=== PATIENT | male | born 1990 | race Caucasian/White ===

== ENCOUNTER 2024-08-27 18:26 | Emergency (ER) | payer OTHER, SELFPAY ==
[2024-08-27 18:30] VITALS: BP 116/62
--- NOTE | 2024-08-27 20:15 | ED.GENMED ---
History of Present Illness
General
Chief Complaint: Skin Surface Trauma
Time Seen by Provider: 08/27/24 19:52
History of Present Illness
History of Present Illness:
TIME OF INITIAL ENCOUNTER: 8:15 PM
HPI: The patient had a piece of glass break and cut his left hand. He is certain that there is no glass in the affected area. He has no other concerns. There is no dysfunction at the fingers/left hand. He states that his tetanus status is
up-to-date
EXAM:
GENERAL: Well appearing in no distress
HEENT: Moist oral mucosa
NEUROLOGIC: Excellent strength all extremities, no obvious coordination deficits
PSYCHIATRIC: Appropriate mental status, normal insight and judgement
EXTREMITIES: Nontender, no edema, moves all extremities equally
SKIN: There is a 2 cm slightly irregular laceration to the dorsal aspect of the left hand over the radial aspect
NUMBER AND COMPLEXITY OF PROBLEMS ADDRESSED AT THE ENCOUNTER
� Chronic conditions affecting care: Bipolar, OCD
� Acute Exacerbation and/or Progression of Chronic Illness: This is an acute problem
� Differential Diagnosis includes: Hand laceration, no evidence for tendon involvement, no evidence of glass foreign body on exam
AMOUNT AND/OR COMPLEXITY OF DATA TO BE REVIEWED AND ANALYZED
� I performed an independent evaluation of and my interpretation is:
EKG:
CT:
X-rays:
Laboratory Studies:
Other:
� Review of other/old records: The patient was seen here with bipolar related issues in 2022
� Clinical information was obtained by an independent historian: None needed
� Prescriptions/Medications Considered but not given:
� Further testing considered but not performed:
RISK OF COMPLICATIONS AND/OR MORBIDITY OR MORTALITY OF PATIENT MANAGEMENT
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
� Discussion with other providers:
� Escalation of care including admission/observation vs risk of discharge considered: The wound was cleaned, no evidence of foreign body, irrigated, and sutured. Tetanus up-to-date.
ANY OTHER UPDATES:
Past History
Past History
ED Past Medical History: Psychiatric and Other (Bipolar)
ED Past Surgical History: None
Social History
Tobacco: Smoker
Alcohol: None
Drug: Marijuana
Personal: Single
Living: with family
Phy Exam
Physical Exam
Physical Exam:
See HPI
Course
Vital Signs
Initial and Last Documented VS:
Initial Vital Signs
Temp Pulse Resp BP Pulse Ox
36.6 C 67 16 116/62 98
08/27/24 18:30 08/27/24 18:30 08/27/24 18:30 08/27/24 18:30 08/27/24 18:30
Last Documented Vital Signs
Temp Pulse Resp BP Pulse Ox
36.6 C 67 16 116/62 98
08/27/24 18:30 08/27/24 18:30 08/27/24 18:30 08/27/24 18:30 08/27/24 18:30
Procedures
Laceration Closure
Left Dorsal Hand:
Status of Wound: clean
Description of Wound Edges: sharp and other (Sharp but slightly irregular)
Preparation: cleaned with SurClens
Anesthesia: 1% Lidocaine
Revision/Debridement: routine- no revision
Wound exploration: explored to base- no FB
Type of Closure: single layer closure
Skin Closure Material: 4-0 nylon
Number of sutures: 3
*Critical Care Note
Total Time (30-74mins, 75-104mins- exclusive of procedures): Not Applicable
ED Attending Note
-
Portions of this chart may have been created with voice recognition software.� Occasional wrong word or��sound alike� substitutions may have occurred due to the inherent limitations of voice recognition software.
Discharge Plan
Departure
Patient Disposition: Home (Routine Discharge)
Date of Disposition: 08/27/24
Time of Disposition: 20:29
Patient with high blood pressure during this ER visit?: Yes
Discharge Problem:
Hand laceration
Instructions: Laceration Repair With Josie (DC)
Prescriptions:
No Action
lithium carbonate 600 MG capsule
600 mg PO DAILY
risperidone 0.5 MG tablet
0.5 mg PO HS
Referrals:
Yassine Barbosa MD [Family Provider] -
Activity Restrictions/Additional Instructions:
Have the stitches removed by your doctor in approximately 7 days. Return here if worse or other concerns.
Interventions
Interventions:
*Risk Screen - Suicide Last Done: 08/27/24 19:12
*General Assessment Last Done: 08/27/24 19:12
*Neglect/Abuse Screening Last Done: 08/27/24 19:12
*ED COVID-19 Vaccine History Last Done: 08/27/24 19:12
ED-Skin Assessment Last Done: 08/27/24 19:12
Discharge Date and Time
Print Language: ARMENIAN
== END 2024-08-27 20:58 | disposition home or self-care (01) ==
LOC: EMR 18:26
PROVIDERS: EMERGENCY PHYSICIAN Emergency Medicine; FAMILY PHYSICIAN Family Medicine
DX: S61.412A Laceration without foreign body of left hand, initial encounter (principal); W25.XXXA Contact with sharp glass, initial encounter; F17.200 Nicotine dependence, unspecified, uncomplicated
CPT/HCPCS: 12001; 99282

== ENCOUNTER 2025-03-17 08:15 | Emergency (ER) | payer OTHER, SELFPAY ==
[2025-03-17 08:39] VITALS: BMI 24.2
--- NOTE | 2025-03-17 08:52 | ED.GENMED ---
History of Present Illness
General
Chief Complaint: Crisis Evaluation
Source: patient
Time Seen by Provider: 03/17/25 08:27
History of Present Illness
History of Present Illness:
Note:
CHIEF COMPLAINT(S)
Seeking voluntary admission for mental health support.
HISTORY OF PRESENT ILLNESS
The patient is a 34-year-old male with a history of substance use and drug-induced psychosis, presenting with a request for voluntary admission ('201') to a mental health facility. He reports that ongoing familial stressors, specifically his mothers
divorce and associated conflicts, are affecting his current living situation and mental well-being. The patient lives in his mothers basement and has a desire to isolate himself from the current family environment. He wishes to engage in a
structured setting to watch television, engage in drawing, and be around others, noting a lack of social support as his friends are currently unavailable.
The patient describes a history of crystal methamphetamine use for four years, resulting in a legal issue involving breaking into his fathers house and subsequent incarceration for four months. Post-incarceration, he successfully completed a mental
health court program, which facilitated his recovery. The patient has maintained sobriety for almost three years, currently utilizing medical marijuana, and reports regular cigarette smoking. Recent insomnia has been noted, linked to early
awakenings due to family disturbances, resulting in reduced sleep duration.
He expresses no current use of illicit drugs aside from prescribed medical marijuana, no auditory hallucinations, and no suicidal ideations. He has experienced occasional throat discomfort, possibly linked to vocal strain. The patient was previously
diagnosed with drug-induced psychosis but reports no ongoing symptoms and has had positive reinforcement from his past mental health provider on his recovery achievements.
PAST MEDICAL HISTORY
- Drug-induced psychosis resolved post-treatment
- Previous crystal methamphetamine use
ADDITIONAL HISTORY OBTAINED FROM SOURCES OTHER THAN THE PATIENT
No additional external sources contributed to the history.
ALLERGIES
The patient reports no known allergies.
SOCIAL HISTORY
The patient uses medical marijuana and is a cigarette smoker. 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
REVIEW OF SYSTEMS
- Psychiatric: Seeking voluntary mental health support, history of drug-induced psychosis, no current hallucinations or suicidal ideation.
- Respiratory: Scratchy throat with potential vocal strain.
- General: Reports insomnia related to current familial stress.
PHYSICAL EXAM
General: Alert, no acute distress.
Skin: Warm, dry.
Head: Normocephalic, atraumatic.
Neck: Supple, trachea midline.
Eyes, Ears, Nose, Mouth, and Throat: Oral mucosa moist.
Cardiovascular: Normal peripheral perfusion, no edema.
Respiratory: Respirations are non-labored.
Gastrointestinal: Abdomen nondistended.
Back: Normal range of motion, normal alignment.
Musculoskeletal: Normal range of motion, normal strength.
Neurological: Alert and oriented to person, place, time, and situation, no focal neurological deficit observed.
Psychiatric: Cooperative, appropriate mood & affect.
PLAN
The plan includes evaluating the patient for voluntary admission ('201') to a mental health facility, arranging a meeting with a picking table worker, and considering cessation of marijuana use during the admission period.
DIFFERENTIAL DIAGNOSIS
The Differential Diagnosis includes, in no particular order and is not limited to:
1. Adjustment disorder
2. Substance use disorder
3. Mood disorder, not otherwise specified
4. Anxiety disorder
5. Insomnia related to stress
6. Vocal strain or laryngitis
7. Familial conflict
8. History of drug-induced psychosis (resolved)
9. Depression
10. Sleep disorder
CARE-UPDATE
03/17/25 - 11:03
Patient reassessed and exhibiting manic behavior, frequently moving lips as if speaking to an unseen interlocutor without verbalizing. Displays episodes of agitation.
Disposition:
SUMMARY OF ENCOUNTER
The patient, a 34-year-old male, presented to the emergency department seeking voluntary admission to an inpatient mental health facility. He reports familial interpersonal difficulties and symptoms consistent with bipolar disorder but denies any
current suicidal ideation. The patient admits to not taking any prescribed medications for his condition. A urine drug screen was ordered to assess substance use, as part of the evaluation process.
DISPOSITION
Admit.
ASSESSMENT
The patient is experiencing exacerbate symptoms related to bipolar disorder, influenced by familial stress and non-compliance with prescribed medication regimen.
PLAN
Initiate voluntary admission for inpatient mental health care. Evaluate the necessity for medication management of bipolar disorder and further assess any potential substance use pending urine drug screening results.
MEDICAL DECISION MAKING
- Number and Complexity of Problems Addressed: Chronic conditions affecting care including substance use disorder, bipolar disorder, and familial conflict.
- Data:
- Category 1: The urine drug screen was ordered to determine possible substance use.
- Category 2: No additional external information was required as the patient provided the history.
- Category 3: Management discussed with picking table worker for patient placement into an appropriate inpatient setting.
- Risk: Prescription medication management considered but pending due to lack of current medication adherence and need for inpatient monitoring. Social determinants of health significantly impact care due to familial conflict.
DIAGNOSIS
- Bipolar disorder (ICD-10: F31.9)
- Adjustment disorder (ICD-10: F43.20)
- Substance use disorder, unspecified (ICD-10: F19.10) pending confirmation from urine drug screen results.
Past History
Past History
ED Past Medical History: Psychiatric and Other (Bipolar)
ED Past Surgical History: None
Social History
Tobacco: Smoker
Alcohol: None
Drug: Marijuana
Personal: Single
Living: with family
Phy Exam
Physical Exam
Physical Exam:
.
Course
Orders/Labs/Results
Orders:
Orders
03/17/25 08:51
Crisis Consult Urgent
Reason for Consult: possible placement
03/17/25 10:34
Drug Screen, Urine [Urine Drug Abuse Screen] Urgent
Date Specimen was Collected: 03/17/25
Time Specimen was Collected: 08:56
Abnormal Lab Results
03/17/25
10:34
U Marijuana (THC) Screen Positive H
(Negative)
Vital Signs
Initial and Last Documented VS:
Initial Vital Signs
Temp Pulse Resp Pulse Ox
98.2 F 61 18 95
03/17/25 08:18 03/17/25 08:18 03/17/25 08:18 03/17/25 08:18
Last Documented Vital Signs
Temp Pulse Resp BP Pulse Ox
98.2 F 82 20 131/85 99
03/17/25 08:18 03/17/25 11:15 03/17/25 11:15 03/17/25 11:15 03/17/25 11:15
*Pulse Oximetry
SaO2: 95
Oxygen Mode of Delivery: Room air
Patient hypoxic: no
*Critical Care Note
Total Time (30-74mins, 75-104mins- exclusive of procedures): Not Applicable
Update Note
Update Note:
Patient presented for voluntary commitment. Only complaint was that he wanted a break from his mom and to get something to eat. Was not suicidal. Does clearly have some giulia but is not psychotic. Patient eloped while waiting place
ED Attending Note
-
Portions of this chart may have been created with voice recognition software.� Occasional wrong word or��sound alike� substitutions may have occurred due to the inherent limitations of voice recognition software.
Discharge Plan
Departure
Patient Disposition: Elopement
Date of Disposition: 03/17/25
Time of Disposition: 08:53
Discharge Problem:
Bipolar disorder with severe giulia
Prescriptions:
No Action
lithium carbonate 600 MG capsule
600 mg PO DAILY
risperidone 0.5 MG tablet
0.5 mg PO HS
Interventions
Interventions:
*Risk Screen - Suicide Last Done: 03/17/25 08:19
*General Assessment Last Done: 03/17/25 08:19
*Neglect/Abuse Screening Last Done: 03/17/25 08:19
*ED- Fall Risk Assessment Last Done: 03/17/25 08:39
*ED COVID-19 Vaccine History Last Done: 03/17/25 08:39
*ED Influenza Vaccine History Last Done: 03/17/25 08:39
*Nursing Disposition Last Done: 03/17/25 12:14
ED-Psychological Assessment Last Done: 03/17/25 08:39
Discharge Date and Time
Discharge Date/Time: 03/17/25 12:14
Print Language: NIUEAN
[2025-03-17 11:15] VITALS: BP 131/85
--- NOTE | 2025-03-17 12:14 | EDRN ---
this RN saw the pt run out of crisis room area and toward the emergency room exit, this RN yelled the pts name and asked the pt if he was okay, the pt slowed down and this RN was able to catch up to the pt, the pt stated, 'I am not staying here, I
came here voluntarily so i can leave if i want, i changed my mind and i do not want to stay', this RN asked the pt if the pt would mind if the provider Dr. Talavera spoke to him first and if he could sign an AMA form and the pt stated, 'I am not
staying here any longer, the pt started running towards the emergency room exit doors to outside, this RN notified Dr. Talavera, crisis staff Milad who attempted to speak with the pt as well, and this RN also notified security
== END 2025-03-17 12:14 | disposition left against medical advice (07) ==
LOC: EMR 08:15
PROVIDERS: EMERGENCY PHYSICIAN Emergency Medicine
DX: F31.9 Bipolar disorder, unspecified (principal); F17.210 Nicotine dependence, cigarettes, uncomplicated; F12.90 Cannabis use, unspecified, uncomplicated; F43.20 Adjustment disorder, unspecified; Z63.8 Other specified problems related to primary support group; Z91.148 Patient's other noncompliance with medication regimen for other reason; Z53.29 Procedure and treatment not carried out because of patient's decision for other reasons
CPT/HCPCS: 99283; 80306

== ENCOUNTER 2025-03-18 12:01 | Emergency (ER) | payer OTHER, SELFPAY ==
[2025-03-18] MEDS: SAPHRIS 10 MG SL (12:11)
[2025-03-18] MEDS: HALDOL 10 MG IM (12:15)
[2025-03-18] MEDS: ATIVAN 2 MG IM (12:16)
[2025-03-18 12:20] VITALS: BP 143/82
--- NOTE | 2025-03-18 12:59 | ED.GENMED ---
History of Present Illness
General
Chief Complaint: Crisis Evaluation
Source: patient
Exam Limitations: altered mental status
Time Seen by Provider: 03/18/25 12:07
Nursing documentation reviewed up to this point in time: agreed with
History of Present Illness
History of Present Illness:
34-year-old male bipolar second visit presents acutely manic dangerous behavior apparently running through the parking lot in the rain, brought back by police, now under 302 seen here yesterday left, he has very pressured speech, verbally and
physically abusive with staff, requires numerous attempts at redirection by security and police was given Saphris but spit it out then ultimately calmed down with IM Haldol and Ativan
Past History
Past History
ED Past Medical History: Psychiatric and Other (Bipolar)
ED Past Surgical History: None
Social History
Tobacco: Smoker
Alcohol: None
Drug: Marijuana
Personal: Single
Living: with family
Phy Exam
Physical Exam
Physical Exam:
Physical Exam
General 34 male pressured speech agitated
Neck:no jaundice
Lungs: no acute respiratory distress.
Neuro: moves all extremities
Skin: no rash
Psychiatric: Agitated manic delusional pressured speech
Extremities: no edema.
Course
Orders/Labs/Results
Orders:
Orders
03/18/25 12:10
Asenapine Sublingual [Saphris] 5 mg .ROUTE .STK-MED ONE
03/18/25 12:11
Asenapine Sublingual [Saphris] 10 mg SL NOW STA
03/18/25 12:13
Haloperidol Lactate [Haldol] 10 mg IM NOW STA
Lorazepam [Ativan] 2 mg .ROUTE .STK-MED ONE
Lorazepam [Ativan] 2 mg IM NOW STA
03/18/25 12:14
Haloperidol Lactate [Haldol] 10 mg .ROUTE .STK-MED ONE
03/18/25 12:17
Electrocardiogram (*1) Urgent
Reason for Study: QTc Monitoring
EKG- Treatment ONCE
03/18/25 12:26
Crisis Consult Urgent
Reason for Consult: manic
03/18/25 12:27
1:1 Observation - Suicide/ Violent Behavior As Directed
03/18/25 12:55
Alcohol Urgent
Complete Blood Count/With Diff Urgent
Comprehensive Metabolic Panel Urgent
[place] Urgent
Vital Signs
Initial and Last Documented VS:
Initial Vital Signs
Temp Pulse Resp BP Pulse Ox
97.5 F 90 22 143/82 99
03/18/25 12:20 03/18/25 12:20 03/18/25 12:20 03/18/25 12:20 03/18/25 12:20
Last Documented Vital Signs
Temp Pulse Resp BP Pulse Ox
97.5 F 90 22 143/82 99
03/18/25 12:20 03/18/25 12:20 03/18/25 12:20 03/18/25 12:20 03/18/25 13:00
MDM/Problems Addressed
Differential Diagnosis Includes:
Acute giulia, agitation intoxication withdrawal
MDM/Problems Addressed:
Acutely asked
Chronic conditions affecting care: Psychiatric illness
Acute Exacerbation and/or Progression of Chronic Illness: Psychiatric illness
*Pulse Oximetry
SaO2: 99
Oxygen Mode of Delivery: Room air
Patient hypoxic: no
*Critical Care Note
Total Time (30-74mins, 75-104mins- exclusive of procedures): Not Applicable
Update Note
Update Note:
Patient sedated for his and staff safety
Will check lithium level 302 completed by police
ED Attending Note
-
Portions of this chart may have been created with voice recognition software.� Occasional wrong word or��sound alike� substitutions may have occurred due to the inherent limitations of voice recognition software.
Discharge Plan
Departure
Patient Disposition: Psych Facility
Date of Disposition: 03/18/25
Time of Disposition: 13:20
Patient with high blood pressure during this ER visit?: No
Condition: Fair
Discharge Problem:
Acute giulia
Prescriptions:
No Action
lithium carbonate 600 MG capsule
600 mg PO DAILY
risperidone 0.5 MG tablet
0.5 mg PO HS
Referrals:
UNKNOWN - PT NOT,INTERVIEWE [Family Provider]
Interventions
Interventions:
*Risk Screen - Suicide Last Done: 03/18/25 12:09
*General Assessment Last Done: 03/18/25 12:09
*Neglect/Abuse Screening Last Done: 03/18/25 12:09
*ED COVID-19 Vaccine History Last Done: 03/18/25 12:09
*ED Influenza Vaccine History Last Done: 03/18/25 12:09
ED-Psychological Assessment Last Done: 03/18/25 12:10
Discharge Date and Time
Print Language: MICRONESIAN
[2025-03-18 13:21] LABS: ALT (SGPT) 47 U/L (0-50); AST (SGOT) 104 U/L (17-59); Albumin 4.4 g/dl (3.5-5.0); Alkaline Phosphatase 70 U/L (38-126); Blood Urea Nitrogen 32 mg/dl (9-20); Calcium 9.2 mg/dl (8.4-10.2); Carbon Dioxide 25 mmol/L (22-30); Chloride 104 mmol/L (98-107); Glucose 107 mg/dl (70-99); Lithium < 0.2 mmol/L (0.6-1.2); Potassium 3.5 mmol/L (3.5-5.1); Sodium 135 mmol/L (135-145); Total Protein 6.7 g/dl (6.3-8.2); eGFR > 60.00
[2025-03-18 13:27] LABS: Hematocrit 34.7 % (39.0-52.0); Hemoglobin 12.4 g/dL (13.0-18.0); Mean Corp Hgb Conc. 35.7 g/dL (33.0-37.0); Mean Corpuscular Volume 88.7 fL (80.0-94.0); Nucleated Red Blood Cells % 0 % (-); Platelet Count 128 10^3/uL (130-400); Red Cell Dist. Width 12.1 % (11.5-14.5)
--- NOTE | 2025-03-18 17:24 | CS.PSYCHR ---
Consult Summary - Psychiatry
-
pt seen in ED for assessment of 302 filed by police.
34 yo man with long history of bipolar disrder presented to Ed yesterday asking for inpatient care. Evaluated to be again manic, arrangements being made for inpatient care, when pt eloped. Had been noted to be around hospital property all night (sub
freezing weather, snow) then at noon today burst into ED and attempted to take security golf cart. Police notified, attempted to get pt to ED for assessment, yelling and removing clothes, swinging. Required IM haldol and ativan to calm down (has
spat out asenapine he had with him.)
Long history of repeated hospitalizations for giulia, states he had been last in the hospital last year, stopped meds (cannot recall what) in order to only use medical marijuana.
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
No medical issues, no allergies.
Old records indicate many different drug trials, pt remembers lithium and depakote, latuda, risperdal
On exam pt is lying in bed calmly naked under blanket (scrubs on floor at bedside) somewhat sedated, stating that he is manic and wants hospitalization. Acknowledges not taking prescribed meds, instead smoking cannabis (has card.) Acknowledges being
here yesterday trying to be hospitalized, cannot say why he left, acknowledges trying to take cart. Insight and judgment poor. No cognitive impairment.
Impression: giulia
Rec. [id number] upheld, will be hospitalized at [facility]
[2025-03-18 19:20] VITALS: BP 110/58
== END 2025-03-18 20:46 ==
LOC: EMR 12:01
PROVIDERS: EMERGENCY PHYSICIAN Emergency Medicine
DX: F31.9 Bipolar disorder, unspecified (principal); F17.200 Nicotine dependence, unspecified, uncomplicated
CPT/HCPCS: 99285; 96372; 80053; 80178; 82077; 85025; 93005